=== PATIENT | female | born 1985 | race Caucasian/White ===

== ENCOUNTER 2017-02-20 16:28 | Emergency (ER) | payer OTHER ==
[~2017-02-20] VITALS: Ht 149.9 cm; Wt 53.8 kg
[2017-02-20] MEDS ORDERED: morphine SULFATE 10 MG/ML, 1ML IVPush PRN (17:00)
[2017-02-20] MEDS ORDERED: ONDANSETRON 2MG/ML, 2ML ONE (17:54)
[2017-02-20] MEDS ORDERED: morphine SULFATE 10 MG/ML, 1ML ONE (17:54)
[2017-02-20] MEDS ORDERED: ONDANSETRON 2MG/ML, 2ML IVPush ONE ×2 (18:00→18:30)
[2017-02-20] MEDS ORDERED: SODIUM CHLORIDE FLUSH 10ML SYR IVF ONE (18:00)
[2017-02-20] MEDS ORDERED: SODIUM CHLORIDE 0.9% 1,000ML IVBOLUS ONE (18:00)
[2017-02-20] MEDS ORDERED: DICYCLOMINE 10 MG/ML, 2ML ONE (18:22)
[2017-02-20] MEDS ORDERED: DICY10CA53 PO (18:25)
[2017-02-20] MEDS ORDERED: DICYCLOMINE 10 MG/ML, 2ML IM ONE (18:30)
[2017-02-20 18:32] LABS: HEMATOCRIT 40.7 % (34.6-47.8); HEMOGLOBIN 13.6 g/dL (11.7-16.4); WHITE BLOOD COUNT 8.1 x10^3/uL (3.4-10)
[2017-02-20 18:42] LABS: ASPARTATE AMINO TRANSFERASE 17 U/L (15-37); BLOOD UREA NITROGEN 8 mg/dL (7-18)
[2017-02-20] MEDS ORDERED: DICYCLOMINE 10 MG CAPSULE PO ONE (19:30)
[2017-02-20 19:31] VITALS: BP 102/52
== END 2017-02-20 19:33 | disposition home or self-care (01) ==
LOC: ED 17:52
DX: K50.00 Crohn's disease of small intestine without complications (principal)
CPT/HCPCS: 36415; 74022; 80053; 81003; 83690; 84703; 85025; 96361; 96374; 96375; 99285; J2270; J2405; J7030